=== PATIENT | female | born 1950 | race Caucasian/White ===

== ENCOUNTER 2021-08-24 17:07 | Emergency (ER) | payer OTHER ==
[~2021-08-24] VITALS: Ht 157.5 cm; Wt 65.8 kg
[~2021-08-24 17:07] MED LIST: BUTALB-ACETAMI1 EACH PO; CALCIUM 600 +1 EAC1 PO; CARISOPRODOL 3350 MG PO; CELEXA20 MG PO; DILANTIN30 MG PO; FISH OIL 1,001000 M2 PO; METOPROLOL SUCC25 M1 PO; NEURONTIN 300300 M1 PO; NORCO 5-325 TA1 EACH PO; PHENYTOIN SODI100 M3 PO; PRILOSEC40 MG PO; TRAMADOL 50 MG50 MG PO; VENTOLIN HFA 1818 GM INH; XALATAN2.5 ML OPHTHALMIC; ZOCOR40 MG PO
[2021-08-24] MEDS ORDERED: ATORVASTATIN CA80 MG PO (17:23)
[2021-08-24] MEDS ORDERED: PROZAC20 MG PO (17:23)
[2021-08-24] MEDS ORDERED: NORVASC5 MG PO (17:23)
[2021-08-24] MEDS ORDERED: PRILOSEC OTC20 MG PO (17:23)
[2021-08-24] MEDS ORDERED: ASA81BEC PO (17:24)
[2021-08-24] MEDS ORDERED: IPRAT-ALBUT 0.5-3 ML INH (17:24)
[2021-08-24] MEDS ORDERED: COZAAR 25 MG TA25 M1 PO (17:24)
[2021-08-24] MEDS ORDERED: NEURONTIN 300M300 M2 PO (17:25)
[2021-08-24] MEDS ORDERED: LAMICTAL100 MG PO (17:25)
[2021-08-24] MEDS ORDERED: PROBIOTIC1 EAC2 PO (17:25)
[2021-08-24] MEDS ORDERED: CITRACAL + D E1 EACH PO (17:25)
[2021-08-24] MEDS ORDERED: FUROSEMIDE 20 M20 MG PO (17:26)
[2021-08-24] MEDS ORDERED: PLAVIX 75 MG TA75 MG PO (17:26)
[2021-08-24] MEDS ORDERED: REGLAN 5 MG TAB5 MG PO (17:26)
[2021-08-24] MEDS ORDERED: NAMENDA 5 MG TAB5 M1 PO (17:27)
[2021-08-24] MEDS ORDERED: DORZOLAMIDE-TI1 EACH EA. EYE (17:28)
[2021-08-24] MEDS ORDERED: [UNRECOGNIZED DRUG - OTHER] EA. EYE (17:29)
[2021-08-24] MEDS ORDERED: [UNRECOGNIZED DRUG - OTHER] PO (17:29)
[2021-08-24] MEDS ORDERED: LATANOPROST EA. EYE (17:29)
[2021-08-24] MEDS ORDERED: PROAIR HFA8.5 GM INH (17:29)
[2021-08-24] MEDS ORDERED: FOSAMAX 70 MG T70 MG PO (17:29)
[2021-08-24 17:30] LABS: ABSOLUTE BASOPHILS 0.2 thou/uL (0.0-0.2); ABSOLUTE EOSINOPHILS 0.3 thou/uL (0.0-0.7); ABSOLUTE LYMPHOCYTES 2.3 thou/uL (0.8-5.3); ABSOLUTE MONOCYTES 0.9 thou/uL (0.0-1.2); BASOPHILS 1.3 %; EOSINOPHILS 2.3 %; HEMATOCRIT 33.7 % (37.0-47.0); HEMOGLOBIN 10.6 gm/dL (12.0-15.0); MCH 26.1 pg (26.0-34.0); MCHC 31.6 g/dL (28.0-37.0); MCV 82.5 fL (80.0-100.0); MONOCYTES 7.7 %; NUCLEATED RBCS 0 /100WBC; PLATELET COUNT* 443 thou/uL (150-400); POLYS 68.7 %; RBC 4.08 mil/uL (4.20-5.00); RDW-CV 15.7 % (10.5-14.5); WBC 11.7 thou/uL (4.0-11.0)
[2021-08-24] MEDS ORDERED: THERA TEARS1 EACH EA. EYE (17:30)
[2021-08-24] MEDS ORDERED: BENTYL 10 MG CA10 M1 PO (17:30)
[2021-08-24] MEDS ORDERED: ZANAFLEX4 M1 PO (17:30)
[2021-08-24] MEDS ORDERED: ONDANSETRON ODT4 MG PO (17:31)
[2021-08-24 17:48] LABS: CALCIUM 8.6 mg/dL (8.5-10.1); CREATININE 1.1 mg/dL (0.6-1.3); POTASSIUM 3.7 mmol/L (3.5-5.1)
[2021-08-24 17:52] LABS: ALBUMIN 3.1 g/dL (3.4-5.0); TOTAL BILIRUBIN 0.2 mg/dL (<0.1-1.0); TOTAL PROTEIN 7.2 g/dL (6.4-8.2)
[2021-08-24 19:07] VITALS: BP 150/69
--- NOTE | 2021-08-26 08:04 | EKG ---
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 : 1950 Requested By: Renato Louis Order Number: [id number] MD: Ryan Acosta Measurements Intervals [place] Rate: 83 P: 44 [place]: 150 QRS: 40 QRSD: 87 T: 48 QT: 397 QTc: 467 Interpretive Statements Sinus rhythm RSR' in V1 or V2, right VCD or RVH Compared to ECG 06/05/2014 20:50:09 Right ventricular hypertrophy now present RSR' in V1 or V2 now present Electronically Signed On 08-26-2021 8:04:40 CDT by Ryan Acosta [email or web address] <ELECTRONICALLY SIGNED> By: Ryan Acosta MD, FACC 08/26/21 0804 1726 1726 Ryan Acosta MD, FACC /EPI
== END 2021-08-24 19:08 | disposition home or self-care (01) ==
LOC: M.ERS 17:07
PROVIDERS: Family Medicine
DX: S16.1XXA Strain of muscle, fascia and tendon at neck level, initial encounter (principal); S63.501A Unspecified sprain of right wrist, initial encounter; S70.01XA Contusion of right hip, initial encounter; S00.31XA Abrasion of nose, initial encounter; M25.562 Pain in left knee; M79.7 Fibromyalgia; G40.909 Epilepsy, unspecified, not intractable, without status epilepticus; J44.9 Chronic obstructive pulmonary disease, unspecified; I10 Essential (primary) hypertension; M06.9 Rheumatoid arthritis, unspecified; Z90.711 Acquired absence of uterus with remaining cervical stump; E66.9 Obesity, unspecified; Z68.26 Body mass index [BMI] 26.0-26.9, adult; Z79.899 Other long term (current) drug therapy; Z79.82 Long term (current) use of aspirin; Z88.1 Allergy status to other antibiotic agents; Z88.0 Allergy status to penicillin; Z88.8 Allergy status to other drugs, medicaments and biological substances; Z88.2 Allergy status to sulfonamides; W17.89XA Other fall from one level to another, initial encounter; Y92.098 Other place in other non-institutional residence as the place of occurrence of the external cause; Y93.89 Activity, other specified; Y99.8 Other external cause status